=== PATIENT | female | born 1975 ===

== ENCOUNTER → 2018-07-12 21:46 | Outpatient (REF) | payer OTHER, SELFPAY ==
[2018-07-12 22:06] LABS: Add Manual Diff / Slide Review NO; Basophils Percent Auto 1.3 % (0-2); Eosinophils Percent Auto 2.7 % (2-4); Hematocrit 38.6 % (36-46); Hemoglobin 12.6 g/dL (12.0-16.0); Lymphocytes Percent Auto 28.2 % (25-40); Mean Corpuscular HGB Conc 32.6 % (30-36); Mean Corpuscular Hemoglobin 27.3 PG (26-34); Mean Corpuscular Volume 83.8 fL (80-100); Neutrophils Absolute Auto 3400 /uL (3000-5900); Neutrophils Percent Auto 55.8 % (50-75); Platelet Count 259 X10^3/uL (150-400); Red Blood Cell Count 4.61 X10^6/uL (4.0-5.2); Red Cell Distribution Width 14.2 % (11.6-14.8)
[2018-07-12 22:14] LABS: Alanine Aminotransferase 35 IU/L (9-52); Albumin Globulin Ratio 1.5 (1.0-2.8); Alkaline Phosphatase 35 U/L (38-126); Aspartate Aminotransferase 17 IU/L (14-36); BUN Creatinine Ratio 22.9 (6-22); Bilirubin Total 0.6 mg/dL (0.2-1.3); Blood Urea Nitrogen 16 mg/dL (7-17); Calcium 9.6 mg/dL (8.4-10.2); Carbon Dioxide 25 mmol/L (22-32); Chloride 106 mmol/L (98-107); Estimated Glomerular Filt Rate > 60.0 mL/min (>60); Globulin 2.6 g/dL (1.7-4.1); Glucose 76 mg/dL (70-100); HEMOLYSIS < 15 (0-50); Potassium 4.3 mmol/L (3.4-5.1); Sodium 142 mmol/L (137-145); Total Protein 6.6 g/dL (6.3-8.2)
[2018-07-12 22:18] LABS: D Dimer < 200 ng/mL (<230)
[2018-07-12 22:25] LABS: Troponin I < 0.012 ng/mL (0.01-0.034)
[2018-07-12 22:28] LABS: B Type Natriuretic Peptide < 100.0 (<100)
[2018-07-12 22:42] LABS: TSH w/ Reflex to FT4 0.72 uIU/mL (0.47-4.68)
[2018-07-13 00:14] LABS: Free T3, Triiodothyronine Free 3.41 pg/mL (2.77-5.27)
[2018-07-13 02:05] LABS: C-Reactive Protein Quant 0.6 mg/dL (<1.0)
[2018-07-14 14:28] LABS: Anti Thyroglobulin Antibody < 1 IU/mL (< 2); Thyroid Peroxidase Antibodies < 1 IU/mL (< 9)
== END ==
LOC: LAB 21:46
PROVIDERS: Visit Provider Physician Assistant
DX: R07.9 Chest pain, unspecified (principal); Z13.89 Encounter for screening for other disorder; R06.02 Shortness of breath; R00.2 Palpitations; R42 Dizziness and giddiness
CPT/HCPCS: 80053; 82550; 82553; 82728; 83519; 83880; 84443; 84481; 84484; 85025; 85379; 86140; 86376; 86800